=== PATIENT | male | born 1950 | race Caucasian/White ===

== ENCOUNTER → 2018-12-13 | Outpatient (CLI) | payer MEDICARE ==
[~2018-12-13] MED LIST: REGADENOSON 0.4 MG/5 ML DISP.SYRIN. IV ONE
--- NOTE | 2018-12-13 10:41 | PCVCIMAG ---
APPROVED REPORT Study performed: 12/13/2018 09:01:08 EXAM: Comprehensive 2D, Doppler, and color-flow Echocardiogram Patient Location: Echo lab Status: routine BSA: 1.81 HR: 65 bpmBP: 104/68 mmHg Rhythm: NSR Other Information Study Quality: Adequate Risk Factors: Cardiac Risk Factors: Hyperlipidemia Indications COPD Chest Pain 2D Dimensions IVSd: 7.88 (7-11mm)LVOT Diam: 20.00 (18-24mm) LVDd: 40.02 mm PWd: 10.06 (7-11mm)Ascending Ao: 29.87 (22-36mm) LVDs: 27.88 (25-40mm) Left Atrium: 29.60 (27-40mm) Aortic Root: 31.24 mm LV Single Plane 4CH: 65.18 % LV Single Plane 2CH: 67.25 % Biplane EF: 66.2 % Volumes Left Atrial Volume (Systole) Single Plane 4CH: 29.72 mLSingle Plane 2CH: 45.48 mL LA ESV Index: 21.00 mL/m2 Aortic Valve AoV Peak Kayden.: 1.22 m/s AO Peak Gr.: 5.97 mmHgLVOT Max P.27 mmHg LVOT Max V: 1.03 m/s JAZMÍN Vmax: 2.72 cm2 Mitral Valve E/A Ratio: 1.1 MV Decel. Time: 244.90 ms MV E Max Kayden.: 0.97 m/s MV A Kayden.: 0.90 m/s IVRT: 69.20 ms TDI E/Lateral E': 9.70E/Medial E': 13.86 Medial E' Kayden.: 0.07 m/s Lateral E' Kayden.: 0.10 m/s Pulmonary Valve PV Peak Kayden.: 0.79 m/sPV Peak Gr.: 2.52 mmHg Pulmonary Vein P Vein S: 0.70 m/sP Vein A: 0.26 m/s P Vein D: 0.41 m/sP Vein A Dur.: 86.5 msec P Vein S/D Ratio: 1.71 Tricuspid Valve TR Peak Kayden.: 2.70 m/sRAP Estimate: 7.00 mmHg TR Peak Gr.: 29.27 mmHg PA Pressure: 36.00 mmHg Left Ventricle The left ventricle is normal size. There is normal LV segmental wall motion. There is normal left ventricular wall thickness. Left ventricular systolic function is normal. The left ventricular ejection fraction is within the normal range. LVEF is 60-65%. The left ventricular diastolic function is normal. Right Ventricle The right ventricle is normal size. The right ventricular systolic function is normal. Atria The left atrium size is normal. The right atrium size is normal. Aortic Valve The aortic valve is normal in structure. No aortic regurgitation is present. There is no aortic valvular stenosis. Mitral Valve The mitral valve is normal in structure. There is no mitral valve regurgitation noted. No evidence of mitral valve stenosis. Tricuspid Valve The tricuspid valve is normal in structure. Mild tricuspid regurgitation. Pulmonary artery pressure is 35 mmHg. Pulmonic Valve The pulmonary valve is normal in structure. There is no pulmonic valvular regurgitation. Great Vessels The aortic root is normal in size. The ascending aorta is normal in size. IVC is normal in size and collapses >50% with inspiration. Pericardium There is no pericardial effusion. <Conclusion> Left ventricular systolic function is normal. There is normal LV segmental wall motion. LVEF is 60-65%. The left ventricular diastolic function is normal. The aortic valve is normal in structure. No aortic regurgitation or stenosis The mitral valve is normal in structure. No mitral valve regurgitation. Mild tricuspid regurgitation. Pulmonary artery pressure of 35 mmHg. There is no pericardial effusion.
--- NOTE | 2018-12-18 07:51 | PCVCIMAG ---
APPROVED REPORT Imaging Protocol: Rest Tc-99m/Stress Tc-99m 1 day Study performed: 12/13/2018 10:02:05 Indication: Chest pain Patient Location: Out-Patient Stress Nurse: Zoya Aguillon RN, Katie Cespedes RN ID Tech:[email or web address] [email or web address] Ht: 5 ft 1 in Wt: 180 lbs BSA: 1.81 m2 HR: 71 bpm BP: 119/60 mmHg BMI: 34.0 Rhythm: Sinus Rhythm Medical History Medical History: Hyperlipidemia, COPD, Former Smoker Medications: No cardiac medications Allergies: None relevant to this exam Cardiac Risk Factors: Age, FHX of CAD Pretest Chest Pain Characteristics: No chest pain Exercise History: Physically active Resting Data Rest SPECT myocardial perfusion imaging was performed in supine position 45 minutes following the intravenous injection of 10.1 mCi of Tc-99m Sestamibi. Time of rest injection: 1000 Date: 12/13/2018 Administration Route: IV Administration Site: Left AC Pharmacologic Stress Pharmacologic stress test was performed by injecting Regadenoson 0.4 mg IV push over 10-15 seconds immediately followed by the intravenous injection of 34.1 mCi of Tc-99m Sestamibi. Time of stress injection: 1130 Administration Route: IV Administration Site: Left AC Gated Stress SPECT was performed 45 minutes after stress injection. The images were gated to evaluate regional wall motion and calculate left ventricular ejection fraction. Stress Test Details Stress Test: Pharmacologic stress was paired with low level exercise. Reason for pharmacologic stress test: physical limitation. HRMax Heart Rate (APMHR): 151 bpm Resting HR: 71 bpmTarget HR (85% APMHR): 128 bpm Max HR Achieved: 115 bpm % of APMHR: 76 Recovery HR: 82 bpm BP Resting BP: 119/60 mmHg Max BP: 110/60 mmHg Recovery BP: 138/60 mmHg ECG Resting ECG: Sinus Rhythm Stress ECG: Sinus Tachycardia ST Change: Normal Maximum ST Deviation: 0 mm Arrhythmia: PVC Recovery ECG: Sinus Rhythm Recovery ST Change: Normal Recovery ST Deviation: 0 mm Clinical Reason for Termination: Completed protocol Stress Symptoms: Dyspnea, Lightheaded Exercise duration: 4 min 00 sec Exercise capacity: 1.6 METs Symptoms resolved with caffeine. Stress ECG Conclusion Clinical: Non-ischemic ECG: Non-ischemic Study Quality Study: Good Study Data Post stress, the left ventricular ejection was 77%.. SSS: 0 SRS: 0 SDS: 0 TID = 0.93. Perfusion No evidence of stress induced ischemia or prior myocardial infarction. Wall Motion Normal left ventricular size and function with no regional wall motion abnormalities. Nuclear Conclusion No evidence of stress induced ischemia or prior myocardial infarction. Normal left ventricular size and function with no regional wall motion abnormalities. Post stress, the left ventricular ejection was 77%. No prior study available for comparison. Interpreted by: Luciano Gómez MD Electronically Approved: 12/13/2018 18:11:46 <Conclusion> Clinical: Non-ischemic ECG: Non-ischemic
== END | disposition home or self-care (01) ==
LOC: PCVCIMAG 08:53
PROVIDERS: ATTEND Internal Medicine
DX: I07.1 Rheumatic tricuspid insufficiency (principal); J44.9 Chronic obstructive pulmonary disease, unspecified; E78.5 Hyperlipidemia, unspecified; Z87.891 Personal history of nicotine dependence; Z88.1 Allergy status to other antibiotic agents
CPT/HCPCS: 78452; 93017; 93306; A9500; J2785